=== PATIENT | male | born 1960 | race Caucasian/White ===

== ENCOUNTER 2016-08-23 05:38 | Emergency (ER) | payer MEDICARE ==
[2016-08-23] MEDS ORDERED: Ketorolac Tromethamine 30 MG/ML VIAL ONE (05:47)
[2016-08-23] MEDS ORDERED: Ondansetron HCl/PF 4 MG/2 ML Vial ONE (06:00)
[2016-08-23] MEDS ORDERED: Pantoprazole 40 MG VIAL ONE (06:27)
--- NOTE | 2016-08-23 07:09 | ERRECORD ---
[facility] EMERGENCY RECORD HPI DIFFICULTY SWALLOWING (05:50 WMEI) CHIEF COMPLAINT: Patient presents for evaluation of difficulty swallowing. HISTORIAN: History provided by patient. LOCATION: Symptoms are localized, mid chest. QUALITY: Pain is dull in nature. TIME COURSE: Gradual onset of symptoms, 7, hours prior to arrival. ASSOCIATED WITH: No associated cough, Denies fever, Associated with food bolus, eating ribs when felt food get stuck never happened before. EXACERBATED BY: Patient's condition exacerbated by nothing. RELIEVED BY: Patient's condition relieved by nothing. ROS (05:52 WMEI) CONSTITUTIONAL: Historian denies chills, denies fever. EYES: Historian denies eye pain, denies eye discharge. ENT: Historian denies drooling, reports dysphagia, denies rhinorrhea, denies sore throat. CARDIOVASCULAR: Historian reports chest pain, substernal, no radiation. RESPIRATORY: Historian denies cough, reports shortness of breath, denies stridor. hz of copd. GI: Historian denies abdominal pain, denies vomiting. GENITOURINARY MALE: Historian denies dysuria, denies urinary urgency. MUSCULOSKELETAL: Historian denies joint stiffness, denies joint swelling. SKIN: Historian denies skin changes, denies skin lesions. NEUROLOGIC: Historian denies confusion, denies mental status changes. PSYCHIATRIC: Historian denies emotional lability, denies mood changes. 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 PRIOR [place] 10YRS AGO. HAD CARDIAC CATH BUT NO STENTS., Flu vaccine up to date, Tetanus immunization up to date, Pneumococcal vaccine up to date, Past medical history includes history of hypertension, which has been treated, Patient is compliant. MALE SURGICAL HISTORY: Surgical history of appendectomy. PSYCHIATRIC HISTORY: Notes: NO PREVIOUS PSYCH HX. SOCIAL HISTORY: Social History includes H/O ALCOHOLISM, Patient denies alcohol use, Patient denies drug use, Patient has no smoking history. FAMILY HISTORY: No known family hisotry. KNOWN ALLERGIES &a-1R&a+25V*p+0X*[id number]*c202B*c15G*c2P*p-0X&a-25V&a+1R Name: Francis Alas : 1960 M56 MedRec: [id number] AcctNum: [id number] Prepared: Tomasa Aug 23, 2016 07:59 by Interface Page 1 of 3 pMD [facility] EMERGENCY RECORD Moose Inhibitors CURRENT MEDICATIONS HYDROCODONE: Patient Dose: 10 mg Oral every 6 hours PRN. (06:21 MVIL) Soma: TABLET : Strength - 250 mg : ORAL Patient Dose: Oral every 8 hours PRN. (06:22 MVIL) hydrochlorothiazide: TABLET : Strength - 25 mg : ORAL Patient Dose: once a day. (06:22 MVIL) VITAL SIGNS VITAL SIGNS: BP: 165/93, Pulse: 86, Resp: 20, Temp: 97.6 (Oral), Pain: 8, O2 sat: 97 on Room Air, Time: 08/23/2016 05:39. (05:39 MVIL) BP: 159/105, Pulse: 95, Resp: 21, Pain: 9, O2 sat: 99 on 2L NC, Time: 08/23/2016 06:01. (06:01 MVIL) Pain: 9, Time: 08/23/2016 06:05. (06:05 MVIL) Pain: 9, Time: 08/23/2016 06:20. (06:20 MVIL) Pain: 9, Time: 08/23/2016 06:10. (06:10 MVIL) BP: 145/83, Pulse: 94, Resp: 20, Temp: 97.6, Pain: 0, O2 sat: 99 on ra, Time: 08/23/2016 06:46. (06:46 RHIC) PHYSICAL EXAM (06:02 WMEI) CONSTITUTIONAL: Vital signs reviewed, Patient afebrile, Patient alert and oriented to person, place and time. HEAD: Head exam included findings of head atraumatic, normocephalic. EYES: Conjunctiva normal, Sclera normal. ENT: Ear exam normal, Nose exam normal, Pharynx exam normal. NECK: Neck exam included findings of normal range of motion, Trachea midline. RESPIRATORY CHEST: Respiratory exam included findings of no respiratory distress, Rhonchi present, Chest exam included findings of chest movement symmetrical, good air movement. CARDIOVASCULAR: Cardiovascular exam included findings of heart rate regular rate and rhythm, Heart sounds normal. ABDOMEN MALE: Abdominal exam included findings of abdomen nontender, no distension. BACK: Back exam included findings of normal inspection, range of motion normal, no costovertebral angle tenderness. UPPER EXTREMITY: Upper extremity exam included findings of inspection normal, Range of motion normal, Motor strength normal. LOWER EXTREMITY: Lower extremity exam included findings of inspection normal, Range of motion normal, Motor strength normal. NEURO: [place] coma scale 15, Neuro exam findings include patient oriented to person, place and time, Speech normal, Gait normal. SKIN: Skin exam included findings of skin warm, dry, and normal in color. PSYCHIATRIC: Psychiatric exam included findings of patient &a-1R&a+25V*p+0X*h3407V*c202B*c15G*c2P*p-0X&a-25V&a+1R Name: Francis Alas : 1960 M56 MedRec: [id number] AcctNum: [id number] Prepared: Tomasa Aug 23, 2016 07:59 by Interface Page 2 of 3 pMD [facility] EMERGENCY RECORD oriented to person place and time, Normal affect, Judgment normal, Insight normal. EKG INTERPRETATION (06:26 [facility]) 12 LEAD EKG INTERPRETATION: 12 lead EKG interpreted by Emergency Department Physician at time of study, 12 lead EKG shows normal sinus rhythm, with no ectopics. MEDICATION ADMINISTRATION SUMMARY Drug Name: Protonix intravenous, Dose Ordered: 40 mg, Route: IV Push, Status: Given, Time: 06:30 08/23/2016, Drug Name: DuoNeb, Dose Ordered: 3 mL, Route: Nebulize, Status: Given, Time: 06:26 08/23/2016, Drug Name: *glucagon (human recombinant), Dose Ordered: 1 mg, Route: IV Push, Status: Given, Time: 06:18 08/23/2016, Drug Name: morphine injection, Dose Ordered: 4 mg, Route: IV Push, Status: Given, Time: 06:06 08/23/2016, Drug Name: ondansetron HCl intravenous, Dose Ordered: 4 mg, Route: IV Push, Status: Given, Time: 05:55 08/23/2016, Drug Name: Toradol intramuscular, Dose Ordered: 30 mg, Route: IV Push, Status: Given, Time: 05:50 08/23/2016, *Additional information available in notes, Detailed record available in Medication Service section. DOCTOR NOTES (06:31 WMEI) TEXT: states felt food pass after iv glucagon. PROBLEM LIST No recorded problems DIAGNOSIS (06:33 WMEI) FINAL: PRIMARY: dysphagia, ADDITIONAL: food bolus. PRESCRIPTION No recorded prescriptions DISPOSITION PATIENT: Disposition Type: Discharge, Disposition: *Discharge Home. (06:33 WMEI) Patient left the department. (06:59 MVIL) [place]: MVIL=PALOMA Aleman, Mercedes RHIC=PALOMA Olivo, Vilma WMEI=DO Sánchez William &a-1R&a+25V*p+0X*[id number]*c202B*c15G*c2P*p-0X&a-25V&a+1R Name: Francis Alas : 1960 M56 MedRec: [id number] AcctNum: [id number] Prepared: Tomasa Aug 23, 2016 07:59 by Interface Page 3 of 3 pMD MTDD
--- NOTE | 2016-08-23 07:14 | PICIS ---
[facility] EMERGENCY RECORD TRIAGE (WedAug 23, 2016 05:42 MVIL) TRIAGE NOTES: FOOD PARTICLE STUCK IN HIS THROAT SINCE 9:30PM TONIGHT. (WedAug 23, 2016 05:42 MVIL) PATIENT: NAME: Francis Alas, AGE: 56, GENDER: male, : Wed1960, TIME OF GREET: WedAug 23, 2016 05:39, PREFERRED LANGUAGE: Israeli, ETHNICITY: Not or , ECODE BILLING MAP: [facility], SSN: [id number], Zip Code: [address], KG WEIGHT: 90.72, HEIGHT/LENGTH: 165.10cm, BMI: 33.28, PHONE: , , , PERSON ID: [id number], PAYMENT: [facility] [place], PCP: MD So Kyle. (WedAug 23, 2016 05:42 MVIL) COMPLAINT: Throat and Epigastric Pain. (06:00 MVIL) ADMISSION: URGENCY: 3 Urgent, ADMISSION SOURCE: Home, TRANSPORT: CAR, BED: ER -02. (WedAug 23, 2016 05:42 MVIL) ASSESSMENT: Assessment: C/O EATING RIBS AT 9:30PM LAST NIGHT, Symptoms began 08/22/2016 05:49, Symptoms began 8 hours ago. (05:50 MVIL) PAIN: Patient complains of pain described as, gnawing, miserable, on a scale 0-10 patient rates pain as 9, Pain is constant, Onset was 08/22/2016 05:50, No aggravating factors, No relieving factors. (05:50 MVIL) IMMUNIZATIONS: Flu vaccine up to date, Tetanus immunization up to date, Pneumococcal vaccine up to date. (05:50 MVIL) SIRS SCORING: Heart Rate 55-109 (0), Temp range 96.8-101.1 (0), respiratory rate 12-24 (0), Mental Status altered: no (0). (05:50 MVIL) TRIAGE SCREENING: Patient denies suicidal ideation, Patient denies presence of domestic violence. (05:50 MVIL) PROVIDERS: TRIAGE NURSE: Mercedes Aleman RN. (WedAug 23, 2016 05:42 MVIL) VITAL SIGNS: BP 165/93, Pulse 86, Resp 20, Temp 97.6, (Oral), Pain 8, O2 Sat 97, on Room Air, Time 08/23/2016 05:39. (05:39 MVIL) ACTIVATE PROTOCOL: Level 1 trauma activated. (05:50 MVIL) PREVIOUS VISIT ALLERGIES: Moose Inhibitors. (Tomasa Aug 23, 2016 05:42 MVIL) Moose Inhibitors. (05:50 MVIL) KNOWN ALLERGIES Moose Inhibitors CURRENT MEDICATIONS HYDROCODONE: Patient Dose: 10 mg Oral every 6 hours PRN. (06:21 MVIL) Soma: TABLET : Strength - 250 mg : ORAL Patient Dose: Oral every 8 hours PRN. (06:22 MVIL) hydrochlorothiazide: TABLET : Strength - 25 mg : ORAL &a-1R&a+25V*p+0X*q0355W*c202B*c15G*c2P*p-0X&a-25V&a+1R Name: Francis Alas : 1960 M56 MedRec: [id number] AcctNum: [id number] Prepared: Tomasa Aug 23, 2016 07:59 by Interface Page 1 of 9 pMD [facility] EMERGENCY RECORD Patient Dose: once a day. (06:22 MVIL) VITAL SIGNS VITAL SIGNS: BP: 165/93, Pulse: 86, Resp: 20, Temp: 97.6 (Oral), Pain: 8, O2 sat: 97 on Room Air, Time: 08/23/2016 05:39. (05:39 MVIL) BP: 159/105, Pulse: 95, Resp: 21, Pain: 9, O2 sat: 99 on 2L NC, Time: 08/23/2016 06:01. (06:01 MVIL) Pain: 9, Time: 08/23/2016 06:05. (06:05 MVIL) Pain: 9, Time: 08/23/2016 06:20. (06:20 MVIL) Pain: 9, Time: 08/23/2016 06:10. (06:10 MVIL) BP: 145/83, Pulse: 94, Resp: 20, Temp: 97.6, Pain: 0, O2 sat: 99 on ra, Time: 08/23/2016 06:46. (06:46 RHIC) NURSING ASSESSMENT: ENT (06:01 MVIL) CONSTITUTIONAL: Patient arrives ambulatory, Gait steady, History obtained from patient, Patient appears comfortable, Patient cooperative, Patient alert, Oriented to person, place and time, Skin warm, Skin dry, Skin normal in color, Mucous membranes pink, Mucous membranes moist, Patient is well-groomed, Patient complains of THROAT AND EPIGASTRIC PAIN AFTER EATING RIBS AT 9:30PM, PATIENT STATES "FEELS LIKE ITS STUCK IN MY THROAT AND WON'T GO DOWN". PAIN: deep pain, gnawing pain, miserable pain, penetrating pain, to the throat, AND EPIGASTRIC PAIN, Onset of pain 08/22/2016 06:02, constant, on a scale 0-10 patient rates pain as 9, Pain exacerbated by nothing, Nothing has been tried to alleviate the pain. ENT: Ear assessment findings include ear normal to inspection, Nasal assessment findings include nose normal to inspection, no bleeding, Mouth and throat assessment findings include mouth inspection normal, Uvula normal, Tonsils normal, Mucous membranes pink, and moist, Unable to swallow, complains of difficulty swallowing, FOOD PARTICLE STUCK IN HIS THROAT, no associated fever. RESPIRATORY/CHEST: Breath sounds clear, Respiratory assessment findings include respiratory effort easy, Respirations regular, Conversing normally, Neck and chest exam findings include trachea midline, Chest expansion equal, Chest movement symmetrical, no signs of distress, Notes: PLACED ON O2 2L NC PER PATIENT'S REQUEST BUT O2 SAT 'S ON ROOM AIR IS 100%. DR. SÁNCHEZ IS AWARE. NOTES: Emotional support needed and given. SAFETY: Side rails up, Cart/Stretcher in lowest position, Family at bedside, Call light within reach, Hospital ID band on. VITAL SIGNS: BP: 159, / 105, Pulse: 95, Resp: 21, Pain: 9, O2 sat: 99, on: 2L NC. NURSING PROCEDURE: DISCHARGE NOTE (06:46 RHIC) DISCHARGE: Patient discharged to home, ambulating without assistance, family driving, accompanied by parent, Summary of Care printed/ provided, Patient requested and was provided an electronic &a-1R&a+25V*p+0X*s1042E*c202B*c15G*c2P*p-0X&a-25V&a+1R Name: Francis Alas : 1960 M56 MedRec: [id number] AcctNum: [id number] Prepared: Tomasa Aug 23, 2016 07:59 by Interface Page 2 of 9 pMD [facility] EMERGENCY RECORD copy of Discharge Instructions, Transition record given to patient, Discharge instructions given to patient, Discharge instructions given to mother, Simple or moderate discharge teaching performed, Above person(s) verbalized understanding of discharge instructions and follow-up care, Patient treated and evaluated by physician. SAFETY: Notes: IV DCD INTACT. VITAL SIGNS: BP: 145, / 83, Pulse: 94, Resp: 20, Temp: 97.6, Pain: 0, O2 sat: 99, on: ra. NURSING PROCEDURE: IV (05:42 RHIC) IV SITE 1: IV established, to the left antecubital, using an 18 gauge catheter, in one attempt, IV site prepped with CHLOPREP. FOLLOW-UP SITE 1: After procedure, 2x3 ensure dressing applied, After procedure, no swelling at IV site, After procedure, no redness at IV site. ORDER DETAILS Order Name: EKG 12 Lead in Emergency Room, Status: Active, Time: 05:49 08/23/2016, User: JABIER, - Ordered for: DO Sánchez William, - Entered by: DO Sánchez William - Tomasa Aug 23, 2016 05:49, - Quantity: 1, Order Name: ERRT * Smal Vol Neb Initial Trmt, Status: Active, Time: 06:25 08/23/2016, User: JABIER, - Ordered for: DO Sánchez William, - Entered by: DO Sánchez William - Tomasa Aug 23, 2016 06:25, - Quantity: 1, Order Name: SALINE LOCK, Status: Done, Time: 05:51 08/23/2016, User: MVIL, - Ordered for: DO Sánchez William, - Entered by: DO Sánchez William - Tomasa Aug 23, 2016 05:49, - Quantity: 1. MEDICATION ADMINISTRATION SUMMARY Drug Name: Protonix intravenous, Dose Ordered: 40 mg, Route: IV Push, Status: Given, Time: 06:30 08/23/2016, Drug Name: DuoNeb, Dose Ordered: 3 mL, Route: Nebulize, Status: Given, Time: 06:26 08/23/2016, Drug Name: *glucagon (human recombinant), Dose Ordered: 1 mg, Route: IV Push, Status: Given, Time: 06:18 08/23/2016, Drug Name: morphine injection, Dose Ordered: 4 mg, Route: IV Push, Status: Given, Time: 06:06 08/23/2016, Drug Name: ondansetron HCl intravenous, Dose Ordered: 4 mg, Route: IV Push, Status: Given, Time: 05:55 08/23/2016, Drug Name: Toradol intramuscular, Dose Ordered: 30 mg, Route: IV Push, Status: Given, Time: 05:50 08/23/2016, *Additional information available in notes, Detailed record available in Medication Service section. &a-1R&a+25V*p+0X*d1082N*c202B*c15G*c2P*p-0X&a-25V&a+1R Name: Francis Alas : 1960 M56 MedRec: [id number] AcctNum: [id number] Prepared: Tomasa Aug 23, 2016 07:59 by Interface Page 3 of 9 pMD [facility] EMERGENCY RECORD MEDICATION SERVICE DuoNeb: Order: DuoNeb (ipratropium bromide/albuterol sulfate) - Dose: 3 mL : Nebulize Ordered by: Isaiah Sánchez DO Entered by: DO Tomasa Shipman Aug 23, 2016 06:24 Documented as given by: PALOMA Bazan Aug 23, 2016 06:26 Patient, Medication, Dose, Route and Time verified prior to administration. Amount given: 3MLS, Correct patient, time, route, dose and medication confirmed prior to administration, Patient advised of actions and side-effects prior to administration, Allergies confirmed and medications reviewed prior to administration, Patient in position of comfort, Side rails up, Cart in lowest position, Family at bedside. glucagon (human recombinant): Order: glucagon (human recombinant) (glucagon,human recombinant) - Dose: 1 mg : IV Push Schedule: Now Notes: Verbal Order Ordered by: Isaiah Sánchez DO Entered by: PALOMA Bazan Aug 23, 2016 06:18 Documented as given by: PALOMA Bazan Aug 23, 2016 06:18 Patient, Medication, Dose, Route and Time verified prior to administration. Amount given: 1MG, IV SITE #1 IVP, initial medication, Slowly, Catheter placement confirmed via flush prior to administration, IV site without signs or symptoms of infiltration during medication administration, No swelling during administration, No drainage during administration, IV flushed after administration, Correct patient, time, route, dose and medication confirmed prior to administration, Patient advised of actions and side-effects prior to administration, Allergies confirmed and medications reviewed prior to administration, Patient in position of comfort, Side rails up, Cart in lowest position, Family at bedside, Co-signed by: DO Tomasa Shipman Aug 23, 2016 06:24. : Follow Up : Response assessment performed, No signs or symptoms of allergic reaction noted, Decreased pain, Decreased symptoms, Decreased nausea, _IV SITE #1:_, Advised not to ambulate without assistance, Patient in position of comfort, Side rails up, Cart in lowest position, Family at bedside, PATIENT STATES NO LONGER FEELS A FOOD PARTICLE STUCK IN HIS THROAT. "FEELS GREAT". (06:38 MVIL) morphine injection: Order: morphine injection (morphine sulfate) - Dose: 4 mg : IV Push Ordered by: Isaiah Sánchez DO Entered by: DO Tomasa Shipman Aug 23, 2016 06:00 Documented as given by: PALOMA Sawant Aug 23, 2016 06:06 &a-1R&a+25V*p+0X*o5499L*c202B*c15G*c2P*p-0X&a-25V&a+1R Name: Francis Alas : 1960 M56 MedRec: [id number] AcctNum: [id number] Prepared: Tomasa Aug 23, 2016 07:59 by Interface Page 4 of 9 pMD [facility] EMERGENCY RECORD Patient, Medication, Dose, Route and Time verified prior to administration. IV SITE #1 IVP, Awake and alert- acceptable, Connections checked prior to administration, Line traced prior to administration, Catheter placement confirmed via flush prior to administration, IV site without signs or symptoms of infiltration during medication administration, No swelling during administration, No drainage during administration, IV flushed after administration, Correct patient, time, route, dose and medication confirmed prior to administration, Patient advised of actions and side-effects prior to administration, Allergies confirmed and medications reviewed prior to administration, Patient in position of comfort, Side rails up, Cart in lowest position, Family at bedside. morphine injection: Response assessment performed, No signs or symptoms of allergic reaction noted, No change in pain, _IV SITE #1:_, Pain: 9. (06:20 MVIL) ondansetron HCl intravenous: Order: ondansetron HCl intravenous (ondansetron HCl) - Dose: 4 mg : IV Push Ordered by: Isaiah Sánchez DO Entered by: DO Tomasa Shipman Aug 23, 2016 06:00 Documented as given by: PALOMA Sawant Aug 23, 2016 05:55 Patient, Medication, Dose, Route and Time verified prior to administration. IV SITE #1 IVP, initial medication, Slowly, Awake and alert- acceptable, Connections checked prior to administration, Line traced prior to administration, Catheter placement confirmed via flush prior to administration, IV site without signs or symptoms of infiltration during medication administration, No swelling during administration, No drainage during administration, IV flushed after administration, Correct patient, time, route, dose and medication confirmed prior to administration, Patient advised of actions and side-effects prior to administration, Allergies confirmed and medications reviewed prior to administration, Patient in position of comfort, Side rails up, Cart in lowest position, Family at bedside. Protonix intravenous: Order: Protonix intravenous (pantoprazole sodium) - Dose: 40 mg : IV Push Ordered by: Isaiah Sánchez DO Entered by: DO Tomasa Shipman Aug 23, 2016 06:27 Documented as given by: PALOMA Bazan Aug 23, 2016 06:30 Patient, Medication, Dose, Route and Time verified prior to administration. Amount given: 40MG, IV SITE #1 IVP, initial medication, Catheter placement confirmed via flush prior to administration, IV site without signs or symptoms of infiltration during medication administration, No swelling during administration, No drainage during administration, IV flushed after administration, Correct patient, time, route, dose and medication confirmed prior to administration, Patient advised of actions and side-effects prior to administration, Allergies confirmed and medications reviewed prior to administration, &a-1R&a+25V*p+0X*i6220V*c202B*c15G*c2P*p-0X&a-25V&a+1R Name: Francis Alas : 1960 M56 MedRec: [id number] AcctNum: [id number] Prepared: Tomasa Aug 23, 2016 07:59 by Interface Page 5 of 9 pMD [facility] EMERGENCY RECORD Patient in position of comfort, Side rails up, Cart in lowest position, Family at bedside. Toradol intramuscular: Order: Toradol intramuscular (ketorolac tromethamine) - Dose: 30 mg : IV Push Schedule: Now Ordered by: Isaiah Sánchez DO Entered by: DO Tomasa Shipman Aug 23, 2016 05:47 Documented as given by: PALOMA Bazan Aug 23, 2016 05:50 Patient, Medication, Dose, Route and Time verified prior to administration. Amount given: 30MG, IV SITE #1 IVP, initial medication, Catheter placement confirmed via flush prior to administration, IV site without signs or symptoms of infiltration during medication administration, No swelling during administration, No drainage during administration, IV flushed after administration, Correct patient, time, route, dose and medication confirmed prior to administration, Patient advised of actions and side-effects prior to administration, Allergies confirmed and medications reviewed prior to administration, Patient in position of comfort, Side rails up, Cart in lowest position. Toradol intramuscular: Response assessment performed, No signs or symptoms of allergic reaction noted, No change in pain, _IV SITE #1:_, IV Line flushed after administration, Advised not to ambulate without assistance, Patient in position of comfort, Side rails up, Cart in lowest position, Family at bedside, MED WAS GIVEN IVP REGARDLESS OF THE MD ORDER STATING IM. DR. SÁNCHEZ AWARE AND AGREED TO IVP. UNABLE TO CHANGE ORDER IN COMPUTER., Pain: 9. (06:10 MVIL) HPI DIFFICULTY SWALLOWING (05:50 WMEI) CHIEF COMPLAINT: Patient presents for evaluation of difficulty swallowing. HISTORIAN: History provided by patient. LOCATION: Symptoms are localized, mid chest. QUALITY: Pain is dull in nature. TIME COURSE: Gradual onset of symptoms, 7, hours prior to arrival. ASSOCIATED WITH: No associated cough, Denies fever, Associated with food bolus, eating ribs when felt food get stuck never happened before. EXACERBATED BY: Patient's condition exacerbated by nothing. RELIEVED BY: Patient's condition relieved by nothing. ROS (05:52 WMEI) CONSTITUTIONAL: Historian denies chills, denies fever. EYES: Historian denies eye pain, denies eye discharge. ENT: Historian denies drooling, reports dysphagia, denies rhinorrhea, denies sore throat. CARDIOVASCULAR: Historian reports chest pain, substernal, no radiation. &a-1R&a+25V*p+0X*f3184K*c202B*c15G*c2P*p-0X&a-25V&a+1R Name: Francis Alas : 1960 M56 MedRec: [id number] AcctNum: [id number] Prepared: Tomasa Aug 23, 2016 07:59 by Interface Page 6 of 9 pMD [facility] EMERGENCY RECORD RESPIRATORY: Historian denies cough, reports shortness of breath, denies stridor. hz of copd. GI: Historian denies abdominal pain, denies vomiting. GENITOURINARY MALE: Historian denies dysuria, denies urinary urgency. MUSCULOSKELETAL: Historian denies joint stiffness, denies joint swelling. SKIN: Historian denies skin changes, denies skin lesions. NEUROLOGIC: Historian denies confusion, denies mental status changes. PSYCHIATRIC: Historian denies emotional lability, denies mood changes. 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 PRIOR ME 10YRS AGO. HAD CARDIAC CATH BUT NO STENTS., Flu vaccine up to date, Tetanus immunization up to date, Pneumococcal vaccine up to date, Past medical history includes history of hypertension, which has been treated, Patient is compliant. MALE SURGICAL HISTORY: Surgical history of appendectomy. PSYCHIATRIC HISTORY: Notes: NO PREVIOUS PSYCH HX. SOCIAL HISTORY: Social History includes H/O ALCOHOLISM, Patient denies alcohol use, Patient denies drug use, Patient has no smoking history. FAMILY HISTORY: No known family hisotry. PHYSICAL EXAM (06:02 WMEI) CONSTITUTIONAL: Vital signs reviewed, Patient afebrile, Patient alert and oriented to person, place and time. HEAD: Head exam included findings of head atraumatic, normocephalic. EYES: Conjunctiva normal, Sclera normal. ENT: Ear exam normal, Nose exam normal, Pharynx exam normal. NECK: Neck exam included findings of normal range of motion, Trachea midline. RESPIRATORY CHEST: Respiratory exam included findings of no respiratory distress, Rhonchi present, Chest exam included findings of chest movement symmetrical, good air movement. CARDIOVASCULAR: Cardiovascular exam included findings of heart rate regular rate and rhythm, Heart sounds normal. ABDOMEN MALE: Abdominal exam included findings of abdomen nontender, no distension. BACK: Back exam included findings of normal inspection, range of motion normal, no costovertebral angle tenderness. UPPER EXTREMITY: Upper extremity exam included findings of inspection normal, Range of motion normal, Motor strength normal. LOWER EXTREMITY: Lower extremity exam included findings of inspection normal, Range of motion normal, Motor strength normal. &a-1R&a+25V*p+0X*e1866W*c202B*c15G*c2P*p-0X&a-25V&a+1R Name: Francis Alas : 1960 M56 MedRec: [id number] AcctNum: [id number] Prepared: Tomasa Aug 23, 2016 07:59 by Interface Page 7 of 9 pMD [facility] EMERGENCY RECORD NEURO: Mauro coma scale 15, Neuro exam findings include patient oriented to person, place and time, Speech normal, Gait normal. SKIN: Skin exam included findings of skin warm, dry, and normal in color. PSYCHIATRIC: Psychiatric exam included findings of patient oriented to person place and time, Normal affect, Judgment normal, Insight normal. EVENTS TRANSFER: Triage to Emergency Emergency Room -02. (Tomasa Aug 23, 2016 05:42 MVIL) Removed from Emergency Emergency Room -02. (06:59 MVIL) EKG INTERPRETATION (06:26 WMEI) 12 LEAD EKG INTERPRETATION: 12 lead EKG interpreted by Emergency Department Physician at time of study, 12 lead EKG shows normal sinus rhythm, with no ectopics. DOCTOR NOTES (06:31 WMEI) TEXT: states felt food pass after iv glucagon. PROBLEM LIST No recorded problems DIAGNOSIS (06:33 WMEI) FINAL: PRIMARY: dysphagia, ADDITIONAL: food bolus. DISPOSITION PATIENT: Disposition Type: Discharge, Disposition: *Discharge Home. (06:33 WMEI) Patient left the department. (06:59 MVIL) INSTRUCTION (06:35 WMEI) DISCHARGE: ESOPHAGEAL FOREIGN BODY, RESOLVED. FOLLOWUP: MD Saray, [place], [facility], [address], [place] [address], . SPECIAL: Follow-up with your primary physician as needed. PRESCRIPTION No recorded prescriptions IMAGING *DISCHARGE INSTRUCTIONS RECEIPT: Image captured from scanner. (06:50 RHIC) *SUPPLY CHARGE SHEET: Image captured from scanner. (06:51 MVIL) *EKG: Image captured from scanner. (06:59 MVIL) ADMIN (07:54 WMEI) DIGITAL SIGNATURE: DO Sánchez William. &a-1R&a+25V*p+0X*r7132B*c202B*c15G*c2P*p-0X&a-25V&a+1R Name: Francis Alas : 1960 M56 MedRec: [id number] AcctNum: [id number] Prepared: Tomasa Aug 23, 2016 07:59 by Interface Page 8 of 9 pMD [facility] EMERGENCY RECORD [place]: MVIL=PALOMA Aleman, Mercedes RHIC=PALOMA Olivo, Vilma WMEI=DO Sánchez William &a-1R&a+25V*p+0X*i7179E*c202B*c15G*c2P*p-0X&a-25V&a+1R Name: Francis Alas : 1960 M56 MedRec: [id number] AcctNum: [id number] Prepared: Tomasa Aug 23, 2016 07:59 by Interface Page 9 of 9 pMD MTDD
== END 2016-08-23 06:45 | disposition home or self-care (01) ==
LOC: BURERS 05:38
DX: T18.128A Food in esophagus causing other injury, initial encounter (principal); J44.9 Chronic obstructive pulmonary disease, unspecified; I10 Essential (primary) hypertension; Z79.899 Other long term (current) drug therapy
CPT/HCPCS: 93005; 94640; 96374; 96375; C9113; J1610; J1885; J2270; J2405; J7620

== ENCOUNTER 2017-04-05 09:35 | Outpatient (CLI) | payer MEDICARE ==
[2017-04-05 11:55] LABS: #Basophils 0.1 thou/uL (0.0-0.2); #Eosinphils 0.3 thou/uL (0.0-0.7); #Lymphocytes 3.8 thou/uL (1.20-3.40); #Monocytes 0.6 thou/uL (0.11-0.59); #Neutrophils 5.3 thou/uL (1.40-6.50); %Basophils 1.1 % (0.0-1.0); %Eosinophils 2.8 % (0.0-10.0); %Lymphocytes 37.7 % (21.0-51.0); %Monocytes 5.8 % (0.0-10.0); %Neutrophils 52.7 % (42.0-75.0); Hemoglobin 16.6 g/dL (14.0-18.0); MDiff Complete? YES; Macrocytosis SLIGHT = 6-15 cells (100X) (0-5/hpf); Mean Corpuscular HGB CONC 33.4 g/dL (32.0-36.0); Mean Corpuscular Hemoglobin 34.1 pg (27.0-31.0); Mean Platelet Volume 7.8 fL (7.4-10.4); Platelet Count 146 thou/uL (130-400); RBC Distribution Width 13.1 % (11.5-14.5); Red Blood Cell (RBC) Count 4.88 mill/uL (4.70-6.10); White Blood Cell (WBC) Count 10.1 thou/uL (4.8-10.8)
[2017-04-05 12:19] LABS: ALT (SGPT) 96 U/L (8-55); AST (SGOT) 56 U/L (5-34); Alkaline Phosphatase 72 U/L (40-150); Anion Gap 13 mmol/L (10-20); BUN (Urea Nitrogen) 15 mg/dL (8.4-25.7); Bilirubin, Total 0.6 mg/dL (0.2-1.2); Calc. Creatinine Clearance 0 mL/min (70-130); Calcium 9.1 mg/dL (7.8-10.44); Carbon Dioxide 26 mmol/L (22-29); Cardiac Risk 6.7 (Less than 4.5); Chloride 104 mmol/L (98-107); Cholesterol 181 mg/dl (< 200 Desired); Estimated GFR-MDRD 89; Globulin 2.5 g/dL (2.4-3.5); Glucose 130 mg/dL (70-105); HDL Cholesterol 27 mg/dL (>60 Neg Risk); LDL Cholesterol, Calculated 117 mg/dL; Potassium 4.4 mmol/L (3.5-5.1); Protein, Total 6.5 g/dL (6.0-8.3); Sodium 139 mmol/L (136-145); Triglycerides 183 mg/dL (Less than 150)
[2017-04-05 12:57] LABS: PSA-Asymptomatic (SCREENING) 1.4 ng/mL (0-4.0); Thyroid Stimulating Hormone 1.8625 uIU/mL (0.35-4.94)
== END 2017-04-05 09:36 | disposition home or self-care (01) ==
LOC: HPCALD 09:35
PROVIDERS: ATTEND Family Medicine
DX: Z12.5 Encounter for screening for malignant neoplasm of prostate (principal); Z13.6 Encounter for screening for cardiovascular disorders; I10 Essential (primary) hypertension
CPT/HCPCS: 36415; 80053; 80061; 84403; 84443; 85025; G0103

== ENCOUNTER 2018-02-14 08:03 | Emergency (ER) | payer MEDICARE ==
[2018-02-14 08:24] LABS: #Basophils 0.1 thou/uL (0.0-0.2); #Eosinphils 0.1 thou/uL (0.0-0.7); #Monocytes 0.9 thou/uL (0.11-0.59); #Neutrophils 7.4 thou/uL (1.40-6.50); %Basophils 0.7 % (0.0-1.0); %Eosinophils 0.6 % (0.0-10.0); %Lymphocytes 19.3 % (21.0-51.0); %Neutrophils 70.4 % (42.0-75.0); Hemoglobin 12.5 g/dL (14.0-18.0); Mean Corpuscular HGB CONC 36.1 g/dL (32.0-36.0); Mean Corpuscular Hemoglobin 33.2 pg (27.0-31.0); Mean Platelet Volume 7.1 fL (7.4-10.4); Platelet Count 88 thou/uL (130-400); RBC Distribution Width 12.9 % (11.5-14.5); Red Blood Cell (RBC) Count 3.76 mill/uL (4.70-6.10); White Blood Cell (WBC) Count 10.5 thou/uL (4.8-10.8)
[2018-02-14] MEDS ORDERED: Fentanyl 100 MCG/2 ML VIAL ONE (08:26)
[2018-02-14 08:35] LABS: ALT (SGPT) 79 U/L (8-55); AST (SGOT) 116 U/L (5-34); Albumin 3.7 g/dL (3.5-5.0); Alkaline Phosphatase 77 U/L (40-150); Anion Gap 24 mmol/L (10-20); BUN (Urea Nitrogen) 49 mg/dL (8.4-25.7); Bilirubin, Total 0.7 mg/dL (0.2-1.2); CK (CPK) 1500 U/L (30-200); Calc. Creatinine Clearance 0 mL/min (70-130); Calcium 8.3 mg/dL (7.8-10.44); Carbon Dioxide 23 mmol/L (22-29); Chloride 88 mmol/L (98-107); Estimated GFR-MDRD 10; Globulin 3.4 g/dL (2.4-3.5); Glucose 161 mg/dL (70-105); Potassium 4.2 mmol/L (3.5-5.1); Protein, Total 7.1 g/dL (6.0-8.3); Sodium 131 mmol/L (136-145)
[2018-02-14 08:40] LABS: PLT Morphology Comment Appears Decreased; RBC Morphology Normal
[2018-02-14 08:56] LABS: Troponin I 40.244 ng/mL (< 0.028)
[2018-02-14] MEDS ORDERED: Tenecteplase 50 MG - STEMI KIT ONE (09:00)
--- NOTE | 2018-02-14 18:19 | RAD ---
PORTABLE CHEST: Date: 02/14/18 An AP portable film at 0754 hours is compared with the 01/06/07 study. FINDINGS: The heart is probably normal in size given the body habitus and AP projection. There is no congestio n, edema, or pleural effusion. The lungs are clear. IMPRESSION: No definite acute finding. POS: HOME
== END 2018-02-14 08:47 | disposition short-term general hospital (02) ==
LOC: BURERS 08:03
DX: I21.19 ST elevation (STEMI) myocardial infarction involving other coronary artery of inferior wall (principal); J44.9 Chronic obstructive pulmonary disease, unspecified; I10 Essential (primary) hypertension; I25.2 Old myocardial infarction
CPT/HCPCS: 71045; 80053; 82550; 82553; 84484; 85025; 93005; J3101; 96361; 96374; 96375; A4216; J3010

== ENCOUNTER 2018-04-18 15:26 | Emergency (ER) | payer MEDICARE ==
[2018-04-18] MEDS ORDERED: Nitroglycerin 50 MG/250 ML BOT 0 ML ONE (15:39)
[2018-04-18 15:40] LABS: #Basophils 0.1 thou/uL (0.0-0.2); #Eosinphils 0.2 thou/uL (0.0-0.7); #Lymphocytes 3.1 thou/uL (1.20-3.40); #Monocytes 0.6 thou/uL (0.11-0.59); #Neutrophils 6.9 thou/uL (1.40-6.50); %Basophils 0.8 % (0.0-1.0); %Eosinophils 1.5 % (0.0-10.0); %Lymphocytes 28.4 % (21.0-51.0); %Monocytes 5.5 % (0.0-10.0); %Neutrophils 63.7 % (42.0-75.0); Hemoglobin 16.7 g/dL (14.0-18.0); Mean Corpuscular HGB CONC 33.6 g/dL (32.0-36.0); Mean Corpuscular Hemoglobin 33.8 pg (27.0-31.0); Mean Platelet Volume 10.1 fL (7.4-10.4); Platelet Count 155 thou/uL (130-400); RBC Distribution Width 13.7 % (11.5-14.5); Red Blood Cell (RBC) Count 4.94 mill/uL (4.70-6.10); White Blood Cell (WBC) Count 10.8 thou/uL (4.8-10.8)
[2018-04-18] MEDS ORDERED: Ondansetron HCl/PF 4 MG/2 ML Vial ONE (15:49)
[2018-04-18] MEDS ORDERED: Furosemide 40 MG/4 ML VIAL ONE (15:56)
[2018-04-18 15:58] LABS: ALT (SGPT) 84 U/L (8-55); AST (SGOT) 73 U/L (5-34); Albumin 4.5 g/dL (3.5-5.0); Alkaline Phosphatase 95 U/L (40-150); Anion Gap 16 mmol/L (10-20); BUN (Urea Nitrogen) 10 mg/dL (8.4-25.7); Bilirubin, Total Less than 0.2 mg/dL (0.2-1.2); Calc. Creatinine Clearance 0 mL/min (70-130); Calcium 9.9 mg/dL (7.8-10.44); Carbon Dioxide 28 mmol/L (22-29); Chloride 97 mmol/L (98-107); Estimated GFR-MDRD 88; Globulin 3.6 g/dL (2.4-3.5); Glucose 146 mg/dL (70-105); Lipase 29 U/L (8-78); Potassium 3.8 mmol/L (3.5-5.1); Protein, Total 8.1 g/dL (6.0-8.3); Sodium 137 mmol/L (136-145)
[2018-04-18 15:59] LABS: CKMB 6.5 ng/mL (0-6.6); Troponin I 0.029 ng/mL (< 0.028)
--- NOTE | 2018-04-18 21:02 | RAD ---
AP PORTABLE CHEST: 04/18/2018 1514 HOURS COMPARISON: Study from [facility] from 03/10/2018. FINDINGS: The heart is normal in size. There is no vascular congestion or edema. The patchy basilar infiltrat es seen previously have resolved. IMPRESSION: No acute thoracic findings. POS: HOME
== END 2018-04-18 16:08 | disposition short-term general hospital (02) ==
LOC: BURERS 15:26
DX: I21.9 Acute myocardial infarction, unspecified (principal); I11.0 Hypertensive heart disease with heart failure; I50.9 Heart failure, unspecified; J44.9 Chronic obstructive pulmonary disease, unspecified
CPT/HCPCS: 71045; 80053; 82553; 83690; 83880; 84484; 85025; 93005; 94760; 96365; 96374; 96375; J1940; J2405